=== PATIENT | male | born 1990 | race Caucasian/White ===

== ENCOUNTER 2016-09-17 09:34 | Emergency (ER) | payer MEDICAID ==
[~2016-09-17] VITALS: Ht 177.8 cm; Wt 115.0 kg
[2016-09-17 09:36] VITALS: BP 149/76; PULSE 72; RESP 17; TEMP 98.2; O2SAT 98
[2016-09-17] MEDS ORDERED: PENI250T59 PO (11:32)
[2016-09-17] MEDS ORDERED: NAPR500T PO (11:32)
--- NOTE | 2016-09-17 11:33 | PD ---
HPI Chief Complaint: Oral / Dental Pain or Problem Time Seen by Provider: 11:32 Travel History International Travel<30 days: No Contact w/Intl Traveler<30days: No Traveled to known affect area: No History of Present Illness HPI 25-year-old male presents to the emergency department for evaluation of left upper posterior dental pain for 2 days. Patient states that he's had issues with this tooth for the past several years, states that he has a wisdom tooth coming in. States he last saw dentist one year ago and was told that they couldn't do anything about it. States that yesterday he began to notice a throbbing pain in the tooth. Denies any injury or trauma to it. Denies any fever, chills, nausea, vomiting, difficulty swallowing, facial swelling, discharge or drainage. States he has taken Tylenol and ibuprofen with minimal improvement of symptoms. No other complaints. PFSH Past Medical History Medical History: Denies Significant Hx Social History Alcohol Use: No Tobacco Use: No Substance Use: No Allergies-Medications (Allergen,Severity, Reaction): Coded Allergies: No Known Allergies (Unverified , 09/17/16) Reported Meds & Prescriptions Reported Meds & Active Scripts Active Naproxen 500 Mg Tab 500 Mg PO BID 7 Days Penicillin Vk (Penicillin V Potassium) 250 Mg Tab 500 Mg PO Q8H 10 Days Review of Systems Except as stated in HPI: all other systems reviewed are Neg Physical Exam Narrative GENERAL: Well-nourished and well-developed pleasant patient in no acute distress who is nontoxic appearing. SKIN: Warm and dry. HEAD: Normocephalic and atraumatic. No facial swelling. EYES: No injection, drainage, or hyphema noted. PERRLA. EOMI. ENT: No nasal drainage noted. Oropharynx is clear. DENTAL: Left upper posterior molar with dental caries and mild gingival erythema. No discharge or drainage. No fluctuance. NECK: Supple and the trachea is midline. CARDIOVASCULAR: Regular rate and rhythm. RESPIRATORY: Breath sounds are equal bilaterally with no accessory muscle use, wheezing, rhonchi, or crackles. NEUROLOGICAL: Awake, alert, and oriented. Normal speech and gait. Cranial nerves are grossly intact. Data Data Last Documented VS Vital Signs Date Time Temp Pulse Resp B/P Pulse Ox O2 Delivery O2 Flow Rate FiO2 09/17/16 09:36 98.2 72 17 149/76 98 [facility] Medical Decision Making Medical Screen Exam Complete: Yes Emergency Medical Condition: Yes Differential Diagnosis Dental caries versus dental infection versus gingivitis Narrative Course 25-year-old male presents to the emergency department for evaluation of left upper posterior dental pain. Patient is afebrile, vital signs are stable. Physical examination shows dental caries and a little bit of swelling and erythema of the surrounding gingiva. Patient will be prescribed penicillin VK and NSAIDs. Stressed the importance of outpatient follow-up with a dentist. Patient verbalizes understanding and agreement with treatment plan. Diagnosis Primary Impression: Pain, dental Referrals: Dentist Patient Instructions: Dental Caries (ED), General Instructions Additional Instructions: Take medications as prescribed with food and a full glass of water. Follow-up with your Dentist. Return to the ED for any acute worsening of symptoms. Med/Other Pt SpecificInfo: Prescription(s) given Scripts Naproxen 500 Mg [id number] Mg PO BID 7 Days Ref 0 Prov:Timmy Huffman MD 09/17/16 Penicillin V Potassium (Penicillin Vk)250 Mg [id number] Mg PO Q8H 10 Days Ref 0 Prov:Timmy Huffman MD 09/17/16 Disposition: 01 DISCHARGE HOME Condition: Stable Gladys Beltran Sep 17, 2016 11:33
== END 2016-09-17 11:43 | disposition home or self-care (01) ==
LOC: NEPB 09:34
DX: K08.89 Other specified disorders of teeth and supporting structures (principal)
CPT/HCPCS: 99282